=== PATIENT | female | born 1995 | race Caucasian/White ===

== ENCOUNTER 2018-05-01 09:47 | Emergency (ER) | payer OTHER, SELFPAY ==
[2018-05-01 09:48] VITALS: PULSE 87; RESP 16; TEMP 37.1; O2SAT 100; BMI 29.0
--- NOTE | 2018-05-01 10:09 | ED.VISSUMM ---
- ER Visit Summary Date of Service: 05/01/18 Chief Complaint: Left ankle infection History of Present Illness: The patient is a 23 F with no primary care physician. She reports that approximately 10 days ago the lateral surface of her left ankle began to itch. He states that 6 days ago there was a scab in the area was. 4 days ago the swelling and pain increased. She was seen at another emergency department and placed on Bactrim and Keflex. She is taken 3 days of this. She is concerned because the redness is not improving. She complains of a burning, stinging pain that is 7 out of 10 with walking 4 out of 10 with that elevated. She denies any paresthesias. She has had no fever. She has had nausea, but no vomiting. Physical Examination: Vitals: Stable. Afebrile. General: Well-nourished and well-developed. Head: Normocephalic atraumatic. Neck: Supple, no lymphadenopathy. No JVD. Nontender. Cardiovascular: Regular rate and rhythm. No murmurs. Respiratory: No respiratory distress. Clear to auscultation bilaterally. Abdominal: Soft, nontender, nondistended, normal bowel sounds. No guarding, rebound, or peritoneal signs. Back: Nontender. Extremities: Over the left lateral malleolus there is approximately 3 mm scab with approximately 5 cm of surrounding erythema. There is no lymphangitic spread. There is no induration or fluctuance. She has a 2+ dorsalis pedis pulse. Neurologic: Alert and oriented ?3. Cranial nerves II through XII are intact. Normal strength and sensation. Psych: Normal affect. Emergency Department Course and Treatment: Had a prolonged discussion with the patient about treatment options. At this time I do not think that there is a purulent collection beneath the skin. Treatment Plan: Patient will be discharged with instructions to continue her Bactrim and Keflex. She will be given a prescription for 12 [place] and naproxen for pain. Instructed to follow-up with Dr. Coronel in 2 days for a wound check. She does understand that if this does not improve with antibiotics or if a fluid collection develops that she will require incision and drainage. Return to the emergency department for any worsening symptoms. Disposition: To home in improved and stable condition. Impression: 1. Cellulitis left ankle. This note was generated with Dragon dictation software. It may contain incorrect words, spelling, and punctuation that were not noted in review of the chart prior to signing ED Disposition - Plan for ED Patient: Chief Complaint: Cellulitis Instructions: Discharge Instructions for Cellulitis Prescriptions: Hydrocodone Bitart/Apap 5-325 [[place] 5MG-325MG] 1 tablet PO Q6H PRN PRN 3 Days #12 tablet PRN Reason: Pain Naproxen [Naprosyn] 500 mg PO BID #14 tablet Referrals: Morro Coronel DPM [STAFF PHYSICIAN] - 2 Days for wound check
[2018-05-01] MEDS: HYDROcodone Bitartrate/Apap 5/325 Tablet PO (10:26)
[2018-05-01] MEDS: Naproxen 250 MG Tablet 500 MG PO (10:26)
[2018-05-01 10:29] VITALS: BP 119/75; PULSE 82; RESP 16; O2SAT 100
== END 2018-05-01 10:30 | disposition home or self-care (01) ==
PROVIDERS: Emergency Provider Emergency Medicine
DX: L03.116 Cellulitis of left lower limb (principal)
CPT/HCPCS: 99283

== ENCOUNTER → 2020-05-12 11:45 | Outpatient (CLI) | payer BC, SELFPAY ==
[2020-05-12 13:47] LABS: Hemoglobin 13.3 g/dL (12.0-15.0); Mean Corp Hgb Conc 34.1 g/dL (32-36); Mean Corpuscular Hgb 31.5 pg (27.0-32.0); Mean Corpuscular Volume 92.4 fL (81-99); Mean Platelet Vol. 10.9 fl (6.2-12.0); Platelet Count 208 K/mm3 (150-450); RBC Distribution Width CV 12.8 % (11.6-14.6); RBC Distribution Width SD 43.2 fl (35.1-43.9); Red Blood Count 4.22 M/mm3 (4.2-5.4)
[2020-05-12 14:00] LABS: Glucose Challenge Gest 1H 50g 92 mg/dL (70-140)
== END ==
PROVIDERS: Visit Provider Student in an Organized Health Care Education/Training Program
DX: Z13.1 Encounter for screening for diabetes mellitus (principal)
CPT/HCPCS: 36415; 82950; 85027; 87086; 87088

== ENCOUNTER → 2020-07-28 14:37 | Outpatient (CLI) | payer BC, SELFPAY ==
[2020-07-28 15:48] LABS: Hematocrit 33.7 % (37-47); Hemoglobin 11.2 g/dL (12.0-15.0); Mean Corp Hgb Conc 33.2 g/dL (32-36); Mean Corpuscular Hgb 28.6 pg (27.0-32.0); Mean Corpuscular Volume 86.2 fL (81-99); Mean Platelet Vol. 11.7 fl (6.2-12.0); Platelet Count 217 K/mm3 (150-450); RBC Distribution Width CV 11.9 % (11.6-14.6); RBC Distribution Width SD 37.2 fl (35.1-43.9); Red Blood Count 3.91 M/mm3 (4.2-5.4); White Blood Count 8.1 K/mm3 (4.4-11.0)
[2020-07-28 16:23] LABS: Protein, Urine (Random) 13.5 mg/dL (<11.9); Protein:Creat Ratio 131 mg/g CRE (0-200)
[2020-07-28 16:46] LABS: ALB/GLOB Ratio 0.7 RATIO (0.9-2.4); AST(SGOT) 16 U/L (15-37); Alanine Aminotransfer ALT/SGPT 18 U/L (13-56); Albumin, Serum 2.7 g/dL (3.2-5.0); Alkaline Phosphatase 94 U/L (45-117); Anion Gap 6 (5-15); BUN 8 mg/dL (7-18); Chloride 105 mmol/L (98-107); Creatinine, Serum 0.61 mg/dL (0.55-1.02); EST Glomerular Filtration Rate 125 mL/min (>60); Est Glom Filt Rate - Afr Amer 151 mL/min (>60); Glucose 86 mg/dL (74-106); LDH 155 U/L (84-246); Protein, Total 6.7 g/dL (6.4-8.2); Sodium Level 136 mmol/L (136-145)
== END ==
PROVIDERS: Visit Provider Student in an Organized Health Care Education/Training Program
DX: Z34.83 Encounter for supervision of other normal pregnancy, third trimester (principal); R30.0 Dysuria
CPT/HCPCS: 36415; 80053; 82570; 83615; 84156; 85027; 87086; 87088

== ENCOUNTER 2020-08-02 08:42 | Emergency (ER) | payer BC, SELFPAY ==
[2020-08-02 08:44] VITALS: BP 146/69; PULSE 110; RESP 16; TEMP 35.5; O2SAT 98; BMI 33.7
[2020-08-02 08:48] VITALS: BP 146/69; PULSE 110; RESP 16; TEMP 35.5; O2SAT 98
--- NOTE | 2020-08-02 09:35 | ED.DCSUM_ITS ---
History of Present Illness Chief Complaint: General Illness Informant: Patient Narrative: 25-year-old G2, P1 at approximately 36 weeks presents with concern for URI symptoms. Patient has had a sore throat and dry cough for the past 24 hours. Denies any significant shortness of breath or chest pain. Denies any abdominal pain or loss of vaginal fluid. States that she spoke with her STAGE MANAGER who recommended emergency department for Covid testing. Past Medical History - Allergies and Home Meds Allergies/Adverse Reactions: Allergies lidocaine Allergy (Verified 08/02/20 08:43) Swelling Primary Care Physician: Meghan Martinez DO [STAFF PHYSICIAN] - 5-7 Days Prior records reviewed: Yes Past Medical History: None Surgical History: no surgical history Lives: Spouse/ Significant Other Smoking Status: Former smoker Alcohol: None Drugs: None Review of Systems General: Denies: Chills, Fever, Sweats Eyes: Denies: Visual changes - bilaterally, Diplopia ENT: Reports: Sore throat. Denies: Rhinorrhea Cardiovascular: Denies: Chest pain, Palpitations Respiratory: Reports: Cough. Denies: Dyspnea, Dyspnea on exertion Gastrointestinal: Denies: Abdominal pain, Nausea, Vomiting, Diarrhea, Melena, Hematochezia Genitourinary: Denies: Dysuria, Hematuria, Frequency Musculoskeletal: Denies: Back pain, Extremity Pain Skin: Denies: Rash, Wounds Neurological: Denies: Headache, Weakness, Numbness Physical Exam Vital Signs/Narrative: Vital Signs Temp Pulse Resp BP Pulse Ox 08/02/20 08:48 96 F L 110 H 16 146/69 H 98 08/02/20 08:44 96 F L 110 H 16 146/69 H 98 Inital Vital Signs reviewed: Yes General: Well nourished, Well developed, No Acute Distress Head: Normocephalic, Atraumatic Eyes: Perrl, EOMI ENT: Moist mucous membranes, No rhinorrhea Neck: Supple, Nontender Cardiovascular: Regular rate, Regular rhythm, No murmurs Respiratory: No distress, CTA bilaterally, Chest nontender Abdomen: Soft, Nontender, Nondistended, Normal bowel sounds Back: Nontender, Normal Inspection Extremities: Nontender, No edema Skin: Normal color, No rash Neurological: Alert, Oriented x3, Cranial nerves II-XII grossly intact, Normal Strength, Normal Sensation Psychological: Normal affect, Normal Mood Diagnostic/Tx/Re-eval - Medical Decision Making Appears well and nontoxic. Vital signs show mild tachycardia as well as elevated systolic blood pressure upon arrival. This was rechecked and these vital signs of normalized and this was likely secondary to the me checked as soon as she was ambulated into the department. Patient's lungs are clear. No hypoxemia. Rapid Covid negative. Patient however is only had symptoms for 24 hours. A more ideal test would be approximately 5 days out from beginning symptoms. Spoke with patient's STAGE MANAGER who is agreeable with her being rechecked in 4 days and having a repeat test. Patient advised that anytime between now and then she begins to get significantly short of breath she needs to return the emergency department for reevaluation. Patient will be given a work note until that time. Asked to self isolate. Patient agreeable and discharged home in stable condition. Impression: 1. URI 2. Possible COVID 19 ED Disposition - Plan for ED Patient: Disposition: Home or Assisted Living Instructions: Coronavirus Disease 2019 (COVID-19): Overview, Preventing the Spread of Infection Understanding Isolation Procedures Referrals: Meghan Martinez DO [STAFF PHYSICIAN] - 5-7 Days Additional Instructions: Please have COVID testing done on August 05. This can be done as an outpatient or you may return to [facility] ED for re-evaluation and testing. Please return for worsening shortness of breathe.
[2020-08-02 10:43] VITALS: BP 135/68; PULSE 79; RESP 16; O2SAT 99
[2020-08-02 11:16] VITALS: BP 126/66; PULSE 87; RESP 16; O2SAT 98
== END 2020-08-02 11:17 | disposition home or self-care (01) ==
PROVIDERS: Emergency Provider Emergency Medicine
DX: J06.9 Acute upper respiratory infection, unspecified (principal); Z20.828 Contact with and (suspected) exposure to other viral communicable diseases; O26.893 Other specified pregnancy related conditions, third trimester; Z87.891 Personal history of nicotine dependence; Z3A.36 36 weeks gestation of pregnancy
CPT/HCPCS: 87426; 99282

== ENCOUNTER → 2020-08-11 11:29 | Outpatient (CLI) | payer BC, SELFPAY ==
[2020-08-02 08:44] VITALS: BMI 33.7
== END ==
PROVIDERS: Visit Provider Student in an Organized Health Care Education/Training Program
DX: Z36.85 Encounter for antenatal screening for Streptococcus B (principal)
CPT/HCPCS: 87081

== ENCOUNTER → 2020-08-19 13:30 | Outpatient (CLI) | payer BC, SELFPAY ==
[2020-08-02 08:44] VITALS: BMI 33.7
== END ==
PROVIDERS: Referring Provider Student in an Organized Health Care Education/Training Program; Visit Provider Student in an Organized Health Care Education/Training Program
DX: Z03.818 Encounter for observation for suspected exposure to other biological agents ruled out (principal)
CPT/HCPCS: 87635; C9803; U0005; U0003

== ENCOUNTER 2020-08-27 05:07 | Inpatient (IN) | payer BC, SELFPAY ==
[2020-08-27] VITALS (17 sets, daily range): BP systolic 109–124; BP diastolic 53–76; PULSE 60–87; RESP 14–18; TEMP 36–36.7; O2SAT 97–100; BMI 33.9
[2020-08-27] MEDS: Lactated Ringers 1,000 ML 999 ML IV (05:45)
[2020-08-27 06:00] LABS: Absolute Lymphocyte Count 1.68 X10^3/uL (0.83-4.51); Absolute Neutrophil Count 4.9 X10^3/uL (2.0-7.7); Basophil# 0.02 X10^3/uL; Basophil% 0.3 % (0-1); Eosinophil# 0.04 X10^3/uL; Eosinophils% 0.5 % (0-5); Hematocrit 32.4 % (37-47); Hemoglobin 10.8 g/dL (12.0-15.0); Lymphocyte # 1.68 X10^3/ul (4.0); Lymphocyte % 22.9 % (19-41); Mean Corp Hgb Conc 33.3 g/dL (32-36); Mean Corpuscular Hgb 27.4 pg (27.0-32.0); Mean Corpuscular Volume 82.2 fL (81-99); Mean Platelet Vol. 12.2 fl (6.2-12.0); Monocyte# 0.64 X10^3/uL; Monocyte% 8.7 % (0-10); NRBC Flagged by Analyzer 0 % (0-5); Neutrophil # 4.92 X10^3/uL (2.7-7.7); Neutrophil % 67.2 % (47-70); Platelet Count 200 K/mm3 (150-450); RBC Distribution Width CV 12.5 % (11.6-14.6); RBC Distribution Width SD 37.6 fl (35.1-43.9); Red Blood Count 3.94 M/mm3 (4.2-5.4); White Blood Count 7.3 K/mm3 (4.4-11.0)
[2020-08-27] MEDS: Acetaminophen 500 MG Tablet 1000 MG PO ×3 (06:29→18:05)
[2020-08-27] MEDS: Sodium Citrate/Citric Acid 30 ML UDC PO (06:50)
[2020-08-27] MEDS: Lactated Ringers 1,000 ML 150 ML IV (06:51)
--- NOTE | 2020-08-27 07:22 | PCM.HPOB.BLA ---
History and Physical Date of Admission: 08/27/20 HPI: 25-year-old G3, P1 at 39/3 weeks, BRYNN 09/01/2020 by LMP consistent with early ultrasound, admitted for primary section for breech presentation. Denies LO F, VB, regular contractions. Reports movement. This is complicated by: Resolved polyhydramnios, breech presentation, Depakote exposure early with normal growth Obstetrical History G1: Full-term G2: Early SAB G3: Current Past Medical History Anxiety and depression Medications PNV, Fioricet Past Surgical History [place] tooth extraction Social History Tobacco use: Former Alcohol use: Denies Illicit drug use: Denies Labs Blood type: A pos Rubella: Immune Hep B/C: Negative/negative HIV: Negative RPR: Nonreactive GBS: neg 08/14 Allergies Lidocaine Review of Systems General: alert and oriented HEENT: _denies change of vision Heart/lungs: _denies CP, SOB GI: _denies nausea, vomiting, dysuria, diarrhea MSK: _denies calf pain, tenderness Physical Exam Vital Signs Temp Pulse Resp BP Pulse Ox 08/27/20 06:18 97.3 F L 87 16 112/73 98 General: a&o x3, NAD HEENT: normocephalic, atraumatic Cardio: no JVD Resp: no increased work in breathing Abdomen: soft, gravid, nontender Extremities: _minimal-moderate edema BSUS: breech Labs Laboratory Tests 08/27/20 08/27/20 Range/Units 05:45 05:45 WBC 7.3 (4.4-11.0) K/mm3 RBC 3.94 L (4.2-5.4) M/mm3 Hgb 10.8 L (12.0-15.0) g/dL Hct 32.4 L (37-47) % MCV 82.2 (81-99) fL MCH 27.4 (27.0-32.0) pg MCHC 33.3 (32-36) g/dL RDW Std Deviation 37.6 (35.1-43.9) fl RDW Coeff of Steven 12.5 (11.6-14.6) % Plt Count 200 (150-450) K/mm3 MPV 12.2 H (6.2-12.0) fl Immature Gran % (Auto) 0.400 (0.0-0.9) % Neut % (Auto) 67.2 (47-70) % Lymph % (Auto) 22.9 (19-41) % [place] % (Auto) 8.7 (0-10) % Eos % (Auto) 0.5 (0-5) % Baso % (Auto) 0.3 (0-1) % Absolute Neuts (auto) 4.9 (2.0-7.7) X10^3/uL Absolute Lymphs (auto) 1.68 (0.83-4.51) X10^3/uL Nucleated RBC % 0 (0-5) % Blood Type A POSITIVE Antibody Screen NEGATIVE Assessment & Plan 25-year-old G3, P1 at 39/3 weeks, BRYNN 09/01/2020 by LMP consistent with early ultrasound, admitted for primary section for breech presentation. This is complicated by: Resolved polyhydramnios, breech presentation, Depakote exposure early with normal growth. Plan for primary section, routine orders. 2 g Ancef preop.
[2020-08-27] MEDS: Cefazolin 2 GM in 0.9% Normal Saline 100 ML IV (07:34)
--- NOTE | 2020-08-27 08:29 | OP.PCM_ITS ---
Delivery Classification: Scheduled Final BRYNN: 09/01/20 Final BRYNN Source: US <20 weeks Gestational age: 39 Weeks and 2 Days Date of Procedure: 08/27/20 Pre-Operative Diagnosis: Breech presentation Post-Operative Diagnosis: Breech presentation Indications: 25-year-old G3, P1 at 39 weeks and 2 days with breech presentation. Breech confirmed today upon admission. Plan for primary section made. All risks, benefits, alternatives were discussed with patient. Risks include but are not limited to: Risk of bleeding to the point of transfusion, infection, injury to surrounding tissue including bowel or bladder requiring prolonged Sainz catheter use, VTE, ICU admission. Patient aware and consented. Patient had declined external cephalic version. Description of Procedure: Patient taken to the operating room spinal anesthesia placed. Patient placed in the supine position with a left lateral tilt. Prepped and draped in the usual sterile fashion. Pfannenstiel skin incision made with scalpel carried down through subcutaneous tissue. Fascia nicked on either side of midline and extended bilaterally using Harvey scissors. Marie clamps used to grasp superior fascial edge which was tented up and underlying rectus muscles were dissected off bluntly and sharply at midline using Harvey scissors. Marie clamps then moved to inferior fascial edge and rectus muscles were dissected off in a similar fashion. Hemostats used to separate rectus muscle superiorly at midline. Peritoneum grasped with 2 hemostats and peritoneum incised with Metzenbaum scissors, peritoneum and extended bluntly. Bladder blade placed. Vesicouterine peritoneum identified and bladder flap created with Metzenbaum scissors. Low transverse uterine incision made and extended bluntly. Hand placed in uterus and feet were palpated these were grasped gently and with gentle traction legs delivered followed by torso. Blue towel placed around torso. Arms swept across the anterior portion of the chest. Head flexed and delivered with assistance of gentle fundal pressure. Cord clamped and cut baby to nursing. Manual extraction of placenta. Uterus exteriorized and cleared of all clots with a dry lap. Run locking suture used to close hysterotomy. Second vertical imbricating stitch was then used. 1 figure-of- eight placed for hemostasis. Uterus replaced into the abdomen. Closure continue to be hemostatic. Peritoneum closed with running stitch. Fascia closed in a running stitch. Subcutaneous closed with running stitch. Skin closed with a running subcuticular stitch. At the end of the procedure all needle, lap, sponge counts were correct x3. Urine output 100 cc clear urine. Amniotic Membrane Rupture Type: Artificial Amniotic Fluid Description: Clear Cord Entanglement: None Esitmated Blood Loss (ml): 700cc Gender: Female (1 minute): 8 (5 minute): 9
[2020-08-27] MEDS: Oxytocin 30 units/NS 500 ml 30 UNITS/500 ML IV.SOLN 167 UNITS IV (08:45)
[2020-08-27] MEDS: Lactated Ringers 1,000 ML 100 ML IV (11:54)
[2020-08-27] MEDS: Ketorolac 30 MG/ML Syringe IV ×2 (15:10→20:59)
[2020-08-27] MEDS: 0.9% Saline Lock 10 ML Syringe IV ×2 (15:14→21:01)
[2020-08-27] MEDS: Ondansetron 4 MG/2 ML Vial IV (17:15)
[2020-08-28] VITALS: BP 102/54; PULSE 78; RESP 16; TEMP 36.8
[2020-08-28] MEDS: Acetaminophen 500 MG Tablet 1000 MG PO ×3 (00:02→12:39)
[2020-08-28] MEDS: Ketorolac 30 MG/ML Syringe IV ×2 (03:26→09:27)
[2020-08-28] MEDS: 0.9% Saline Lock 10 ML Syringe IV ×2 (03:26→09:27)
[2020-08-28 03:31] VITALS: BP 118/55; PULSE 81; RESP 16; TEMP 36.9
[2020-08-28 06:01] LABS: Hematocrit 28.7 % (37-47); Hemoglobin 9.3 g/dL (12.0-15.0); Mean Corp Hgb Conc 32.4 g/dL (32-36); Mean Corpuscular Hgb 26.7 pg (27.0-32.0); Mean Corpuscular Volume 82.5 fL (81-99); Mean Platelet Vol. 11.9 fl (6.2-12.0); Platelet Count 161 K/mm3 (150-450); RBC Distribution Width CV 12.7 % (11.6-14.6); RBC Distribution Width SD 38.4 fl (35.1-43.9); Red Blood Count 3.48 M/mm3 (4.2-5.4); White Blood Count 6.2 K/mm3 (4.4-11.0)
[2020-08-28 08:30] VITALS: BP 111/66; PULSE 82; RESP 18; TEMP 36.4; O2SAT 99
[2020-08-28] MEDS: Enoxaparin 40 MG/0.4 ML Syringe SC (09:26)
[2020-08-28] MEDS: Senna/Docusate Sodium 1 Tablet PO (09:27)
--- NOTE | 2020-08-28 09:35 | PCM.PN.OB ---
Subjective: POD1. Doing well. Ambulating in room. Tolerating diet. Pain controlled - Physical Exam Vitals/I&O's: Vital Signs Temp Pulse Resp BP Pulse Ox 97.6 F L 82 18 111/66 99 08/28/20 08:30 08/28/20 08:30 08/28/20 08:30 08/28/20 08:30 08/28/20 08:30 Oxygen Delivery Method Room Air Weight: 95.254 kg Body Mass Index (BMI) 33.9 Intake and Output for Last 24 Hours 08/26/20 08/27/20 08/28/20 23:59 23:59 23:59 Intake Total 4263.33 / 4263.33 Output Total 1000 / 1000 600 / 600 Balance 3263.33 / 3263.33 -600 / -600 General: Alert, Oriented x3, No apparent distress HEENT: Atraumatic, Normocephalic Neck: Supple Lungs: Normal air movement Cardiovascular: Regular rate Abdomen: Soft - dressing c/d, uterus 2 cm below umbilicus Extremities: No edema Neurological: Cranial nerves II-XII grossly intact Psych/Mental Status: Normal Affect, Appropriate Laboratory Results 08/28/20 05:50: WBC 6.2, RBC 3.48 L, Hgb 9.3 L, Hct 28.7 L, MCV 82.5, MCH 26.7 L, MCHC 32.4, RDW Std Deviation 38.4, RDW Coeff of Steven 12.7, Plt Count 161, MPV 11.9 Current Medications Acetaminophen (Acetaminophen 500 Mg Tablet) 1,000 mg PO Q6 [facility] Last Admin: 08/28/20 06:33 Dose: 1,000 mg Documented by: Bisacodyl (Bisacodyl 10 Mg Suppository) 10 mg RECTAL UD PRN PRN Reason: If no BM Enoxaparin Sodium (Enoxaparin 40 Mg/0.4 Ml Syringe) 40 mg SC DAILY [facility] Last Admin: 08/28/20 09:26 Dose: 40 mg Documented by: Hydrocortisone (Hydrocortisone 2.5% Crm) 1 applic TOPICAL TID PRN PRN; Protocol PRN Reason: Discomfort Ibuprofen (Ibuprofen 600 Mg Tablet) 600 mg PO Q6H [facility] Naloxone HCl (Naloxone 0.4 Mg/Ml Syringe) 0.02 mg IV Q1M PRN PRN Reason: RR <10 and pt unresponsive Ondansetron HCl (Ondansetron 4 Mg/2 Ml Vial) 4 mg IV Q4H PRN PRN PRN Reason: Nausea Last Admin: 08/27/20 17:15 Dose: 4 mg Documented by: Oxycodone HCl (Oxycodone 5 Mg Tablet) 5 mg PO Q4H PRN PRN PRN Reason: Pain Score 6-10 Prochlorperazine Edisylate (Prochlorperazine 10 Mg/2 Ml Vial) 10 mg IV Q6H PRN PRN PRN Reason: NAUSEA Senna/Docusate Sodium (Senna/Docusate Sodium 1 Tablet) 0 tablet PO DAILY [facility] Last Admin: 08/28/20 09:27 Dose: 1 tablet Documented by: Simethicone (Simethicone 80 Mg Tablet) 80 mg PO PCHS PRN PRN Reason: Indigestion/stomach pain Sodium Chloride (0.9% Saline Lock 10 Ml Syringe) 5 - 15 ml IV UD PRN PRN Reason: SALINE FLUSH Last Admin: 08/28/20 09:27 Dose: 10 ml Documented by: Zolpidem Tartrate (Zolpidem Tartrate 5 Mg Tablet) 5 mg ORAL QHS PRN PRN PRN Reason: Insomnia Medical Necessity - Tobacco Use Smoking Status: Former smoker Assessment/Plan POD1 s/p PLTCS for breech presentation. Doing well. Anticipate home today.
--- NOTE | 2020-08-28 09:37 | DCINST_ITS ---
Discharge Activity: Return to Normal Activity, May not drive while taking narcotic pain medications., May Shower May resume sexual activity in: 6-8 weeks Weight Bearing Status: Weight bearing as tolerated Call your doctor if your incision/area has: Continuous Slow Oozing, Sudden Increased Bleeding, Increased Pain/ Swelling, Increased Redness Call your doctor if you observe: Fever of 101 or Higher, Inability to have a bowel movement, Using more than one pad per hour, Shortness of breath, Chest pain, Calf discomfort Additional Instructions: If you experience any of the following, contact your healthcare provider. * Bleeding that soaks a pad every hour for 2 hours * Fever 100.4 or higher * Unrelieved incision or abdominal pain * Swelling, redness, discharge or bleeding from your incision or episiotomy site * Your incision begins to separate * Problems urinating (including inability to urinate or burning while urinating). * Visual changes * Severe headache * Flu-like symptoms * Pain or redness in one of both of your breasts * Pain, warmth, tenderness or swelling in your legs, especially the calf area * Frequent nausea and vomiting * Symptoms of depression or anxiety If you experience any of the following, call 911 or go to the nearest Emergency Room. * Chest pain * Problems breathing * Seizure activity * Partial or complete paralysis of a body part, slurred speech, weakness or drooping of the face, or a sudden inability to walk or hold your balance Allergies/Adverse Reactions: Allergies lidocaine Allergy (Verified 08/02/20 08:43) Swelling Medications to take at Discharge Pnv No.95/Ferrous Fum/Folic AC [ Caplet] 1 ea PO DAILY 08/02/20 Oxycodone [Oxyir] 5 mg PO Q6H PRN PRN 5 Days #21 tablet 08/28/20 The following prescriptions were given: Oxycodone [Oxyir] 5 mg PO Q6H PRN PRN 5 Days #21 tablet PRN Reason: Pain Score 6-10 Transmission Status: Received by [facility]/pharmacy #[id number] Follow-Up: Call to make an appointment with your doctor for an incision check in 1-2 weeks. You will also need a 6 week post- follow up appointment. Test results from this visit will be discussed in further detail at your follow- up appointment, if applicable. Please Follow Up With: Martinez,Meghan, DO When: 2 week and 6 week Primary Care Physician: Care Physician,No Primary [Primary Care Provider] -
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
[2020-08-28 13:12] VITALS: BP 123/80; PULSE 98; RESP 16; TEMP 36.5
== END 2020-08-28 14:20 | disposition home or self-care (01) | DRG 788 ==
PROVIDERS: Admitting Provider Student in an Organized Health Care Education/Training Program; Referring Provider Student in an Organized Health Care Education/Training Program; Visit Provider Student in an Organized Health Care Education/Training Program
PROC: 10D00Z1 Extraction of Products of Conception, Low, Open Approach (ICD-10-PCS; CPT 59514; principal; 2020-08-27 07:15)
DX: O32.1XX0 Maternal care for breech presentation, not applicable or unspecified (principal); Z3A.39 39 weeks gestation of pregnancy; Z37.0 Single live birth; Z87.891 Personal history of nicotine dependence
CPT/HCPCS: 85025; 85027; 86850; 86900; 86901; 99218; 99251; J7120; A4216; G0378; G0463; J2405

== ENCOUNTER 2023-10-12 09:35 | Outpatient (CLI) | payer MEDICAID, SELFPAY ==
[2023-10-12 09:49] VITALS: BMI 33.9
[2023-10-12 10:02] VITALS: BP 114/73; PULSE 90; RESP 16; TEMP 36.6; O2SAT 97; O2SAT 98
--- NOTE | 2023-10-12 12:50 | OB.TRI.NOTE ---
HPI - General General Date of Service: 10/12/23 HPI Narrative RAMANDEEP GARCIA, is a 28 F who presents with ctxs Maternal Data Information Final BRYNN: 10/22/23 PFSH PFSH Home Medications vit no.95-ferrous fumarate 28 mg-folic acid 800 mcg tablet 1 ea PO DAILY Check with primary doctor 08/02/20 [History Last Taken 10/11/23 14:00] sertraline 50 mg tablet (Zoloft) 50 mg PO DAILY 10/12/23 [History Last Taken 10/11/23 14:00] Allergy/AdvReac Type Severity Reaction Status Date / Time lidocaine Allergy Swelling Verified 10/12/23 09:46 Social History Smoking Status: Former smoker History Elective abortions Hx Para 1 Spontaneous abortions Hx # Term Pregnancies Ectopic pregnancies Hx # Pregnancies Multiple births # of living children NST FHR Rate Baby A Baseline: 135 Variability:: Moderate Accelerations:: 15 x 15 Decelerations:: Variable Uterine Activity:: Irregular Assessment & Plan (1) False labor: PLAN: Plan Reactive NST
== END 2023-10-12 11:50 | disposition home or self-care (01) ==
LOC: WPOUT 09:44 → WP 09:44
PROVIDERS: Referring Provider Obstetrics & Gynecology; Visit Provider Obstetrics & Gynecology
DX: O47.9 False labor, unspecified (principal); Z3A.00 Weeks of gestation of pregnancy not specified
CPT/HCPCS: 59025; 59050; G0378 ×2; 99221

== ENCOUNTER 2023-10-15 01:30 | Inpatient (IN) | payer MEDICAID, SELFPAY ==
[2023-10-14 22:50] VITALS: BP 130/79; PULSE 96; RESP 16; TEMP 36.7
[2023-10-14 23:12] VITALS: BMI 33.8
[2023-10-15] VITALS (54 sets, daily range): BP systolic 112–144; BP diastolic 57–83; PULSE 69–103; RESP 16–18; TEMP 36.1–36.6; O2SAT 92–100
[2023-10-15] MEDS: LACTATED RINGERS 500 ML 999 ML IV (01:50)
[2023-10-15] MEDS: Lactated Ringers 1,000 ML 50 ML IV (01:50)
--- NOTE | 2023-10-15 01:57 | PCM.HP.OB ---
HPI - General General Date of Admission: 10/15/23 HPI Narrative RAMANDEEP GARCIA, is a 28 F @ 38.5 weeks who presents c/o contractions. pt on admission was 4cm made change to 7cm and was admitted. pt is GBS positive PFSH PFS Medical History (Updated 10/15/23 @ 02:[address] Rayne Tubbs MD) Anxiety Depression Vaginal after Home Medications vit no.95-ferrous fumarate 28 mg-folic acid 800 mcg tablet 1 ea PO DAILY Check with primary doctor 08/02/20 [History Last Taken 10/11/23 14:00] sertraline 50 mg tablet (Zoloft) 50 mg PO DAILY 10/12/23 [History Last Taken 10/11/23 14:00] Allergy/AdvReac Type Severity Reaction Status Date / Time lidocaine Allergy Swelling Verified 10/14/23 23:17 Surgical History (Updated 10/15/23 @ 02:[address] Rayne Tubbs MD) History of surgery Previous section Social History Smoking Status: Former smoker History Elective abortions Hx Para 3 Spontaneous abortions Hx # Term Pregnancies Ectopic pregnancies Hx # Pregnancies Multiple births # of living children NST FHR Rate Baby A Baseline: 130 Variability:: Moderate Accelerations:: 15 x 15 Decelerations:: None Uterine Activity:: [id number] Vital Signs Vital Signs Vital Signs: 10/14/23 22:50 10/14/23 22:50 10/14/23 22:50 Temperature Temperature Source Temporal Pulse Rate 96 Respiratory Rate Blood Pressure 130/79 H BP Systolic 130 BP Diastolic 79 10/14/23 22:50 10/14/23 22:50 Temperature 98.1 F Temperature Source Pulse Rate Respiratory Rate 16 Blood Pressure BP Systolic BP Diastolic Weight Weight: 95.2 kg Body Mass Index (BMI) 33.8 Physical Exam Const alert and oriented x3 General Appearance: cooperative HEENT normocephalic GI GI Narrative: Gravid, non tender to palpation. OB / External & Speculum: external exam normal Extremity normal to inspection Skin no rashes or lesions noted Neuro oriented x3 and CN's II-XII intact bilaterally Psych Appearance: grossly normal Labs Labs Labs: Blood Type A POSITIVE Antibody Screen NEGATIVE Hct 28.7 % (37-47) L Hgb 9.3 g/dL (12.0-15.0) L Syphilis Total Ab Pending Rubella IgG Antibody 92.0 IU/mL Hep Bs Antigen Negative (Negative) Hepatitis C Antibody Pending HIV 1&2 Antibody Pending Glucose 1 Hr 50 gm 92 mg/dL (70-140) Rhogam given: No Assessment & Plan (1) Anxiety: (2) Depression: (3) Previous section: COMMENT: 2020 (4) Obesity affecting : (5) Positive GBS test: PLAN: Plan Admit to L&D Mont[facility] FHR/TOCO Epidural if requested for pain Monitor VS Anticipate successful PCN for GBS prophylaxis
[2023-10-15] MEDS: Penicillin G Pot 5,000,000 UNITS in 0.9% Normal Saline (100mL MB+) 100 ML 150 UNITS IV (02:00)
[2023-10-15 02:21] LABS: Absolute Lymphocyte Count 0.88 X10^3/uL (0.83-4.51); Absolute Neutrophil Count 9.5 X10^3/uL (2.0-7.7); Basophil# 0.02 X10^3/uL; Basophil% 0.2 % (0-1); Hematocrit 36.4 % (37-47); Lymphocyte # 0.88 X10^3/ul (0.83-4.51); Lymphocyte % 7.9 % (19-41); Mean Corpuscular Hgb 26.4 pg (27.0-32.0); Mean Corpuscular Volume 80.2 fL (81-99); Mean Platelet Vol. 11.5 fl (6.2-12.0); Monocyte# 0.67 X10^3/uL; NRBC Flagged by Analyzer 0 % (0-5); Neutrophil % 85.5 % (47-70); Platelet Count 171 K/mm3 (150-450); RBC Distribution Width SD 39.9 fl (35.1-43.9); Red Blood Count 4.54 M/mm3 (4.2-5.4); White Blood Count 11.1 K/mm3 (4.4-11.0)
--- NOTE | 2023-10-15 03:16 | PCM.PN.BLA ---
Progress Note Patient requesting AROM- 9cm per nursing- pt now declining epidural. AROM performed- Light meconium.
[2023-10-15] MEDS: Oxytocin 15 Units/NS 250ml 15 UNITS/250 ML IV.SOLN 83 UNITS IV (03:35)
[2023-10-15] MEDS: Oxytocin 10 UNITS/ML Vial IM (03:36)
--- NOTE | 2023-10-15 03:43 | EX.PCM.OBRPT ---
Vaginal Delivery Maternal Presentation Maternal Presentation: Active Labor Operative Information Date of Procedure: 10/15/23 Pre-Operative Diagnosis: Previous Cs, 38.5 weeks gestation, Active labor, Obesity in Post-Operative Diagnosis: same, live female Surgery / Procedure Performed: Spontaneous Vaginal Delivery Type of Anesthesia: None Estimated Blood Loss: 50 Time of Delivery: 03:33 Findings Description of Procedure: Patient progressed to fully dilated after artificial rupture membranes. Patient with good maternal pushing efforts delivered the head followed by the anterior shoulder and the rest the infant's body. The was placed on the mother's chest for immediate skin to skin. Cord was clamped and cut after approximately 30 seconds. IM and IV Pitocin were given per protocol. Placenta was then delivered intact without complication. Vagina and perineum were intact. Presentation: Vertex Amniotic Membrane Rupture Type: Artificial Amniotic Fluid Description: Lightly stained meconium Placental Delivery Description: Spontaneous Placenta Disposition: [facility] Specimen(s) Removed: Placenta Cord Vessel Description: 3 Vessels Cord Entanglement: None Infant A Gender: Female (1 minute): 8 (5 minute): 9 Delayed Cord Clamping: Yes Post Vaginal Delivery Medications Given After Delivery: IV Pitocin and IM Pitocin Episiotomy Description: None Laceration: None Complication Complications: None
[2023-10-15 04:46] LABS: HIV - WCH Non-Reactive (Nonreactive); Hepatitis B Surface Antigen Non-Reactive (Nonreactive); Hepatitis C Antibody Non-Reactive (Nonreactive); Syphilis Antibodies Non-reactive
[2023-10-15 05:31] LABS: Rubella IgG Reactive (Nonreactive)
[2023-10-15] MEDS: Ibuprofen 600 MG Tablet PO ×2 (05:53→17:01)
--- NOTE | 2023-10-15 09:04 | NURSING ---
Pt requesting for IV to be removed. Pt states that she has peed twice but did not know that she was supposed to measure. Pt states that she felt like she went a good amount.
[2023-10-15] MEDS: Sertraline 50 MG Tablet PO (11:10)
[2023-10-16 00:05] VITALS: BP 114/70; PULSE 65; RESP 16; TEMP 36.7; O2SAT 99
[2023-10-16] MEDS: Ibuprofen 600 MG Tablet PO ×2 (00:05→09:27)
[2023-10-16 03:50] VITALS: BP 112/68; PULSE 74; RESP 16; TEMP 36.2; O2SAT 99
--- NOTE | 2023-10-16 08:29 | PCM.PN.OB ---
Subjective Subjective Patient doing well. Having some period like cramping. Lochia is normal. Pain is controlled. She is ambulating and voiding without difficulty. She is tolerating a diet without nausea or vomiting. She denies lightheadedness, dizziness, chest pain, shortness of breath, leg pain. She desires to go home today. Objective Data Objective Data Vital Signs: Vital Signs Temp Pulse Resp BP Pulse Ox O2 Del Method 97.1 F L 74 16 112/68 99 Room Air 10/16/23 03:50 10/16/23 03:50 10/16/23 03:50 10/16/23 03:50 10/16/23 03:50 10/16/23 03:50 Oxygen Delivery Method Room Air Weight: 209 lb 14.081 oz Body Mass Index (BMI) 33.8 Intake & Output: Intake and Output for Last 24 Hours 10/14/23 10/15/23 10/16/23 23:59 23:59 23:59 Intake Total 940.83 / 940.83 Output Total 50 / 50 Balance 890.83 / 890.83 Lab / Micro Data 10/15/23 01:45 Physical Exam Const alert and no apparent distress General Appearance: comfortable HEENT normocephalic GI soft to palpation, non-tender and non-distended GI Narrative: Fundus firm at U -2 Extremity normal to inspection and no calf tenderness Assessment & Plan (1) Vaginal after : PLAN: Patient is day 1 from a vaginal after . She is doing well and desires discharge. Discharge instructions reviewed.
--- NOTE | 2023-10-16 08:31 | DCINST_ITS ---
Discharge Instructions Diet Discharge Diet: No restrictions Activity Discharge Activity: May Drive and May Shower May resume sexual activity in: 6 weeks Weight Bearing Status: Weight bearing as tolerated Lifting Restrictions: nothing heavier than baby Dressing / Incision Call your doctor if you observe: Fever of 101 or Higher, Coldness, Increased Pain, Numbness or Tingling, Change in Color, Inability to urinate, Inability to have a bowel movement, Using more than 1 pad per hour, Shortness of breath, Dizziness, Fainting spells, Swelling in the ankles, Chest pain, Increased palpitations (irregular heartbeat), Calf discomfort and Uncontrolled pain Follow Up Care When: 1-2 weeks early 6 week exam Test Results: Test results from this visit will be discussed in further detail at your follow- up appointment, if applicable. Discharge Plan Admission Admit Date/Time: 10/15/23 01:30 Primary Reason for Your Visit: delivery Attending Provider: Rayne Tubbs Primary Care Provider: Maricruz PhysicianKarine Primary Instructions Patient Instructions: After a Vaginal Discharge Orders/Prescriptions Prescriptions: Continued PNV cmb#95-ferrous fumarate-FA 1 EACH tablet 1 ea PO DAILY sertraline [Zoloft] 50 mg tablet 50 mg PO DAILY Referrals / Follow Up: Care Physician,No Primary [Primary Care Provider] - Disposition Disposition (needs filled in before D/C Order can be placed): Home, Self Care
[2023-10-16] MEDS: Sertraline 50 MG Tablet PO (09:27)
[2023-10-16 10:00] VITALS: PULSE 82; RESP 18; TEMP 36.5; O2SAT 98
[2023-10-16 13:39] VITALS: BP 127/73
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
--- NOTE | 2023-10-16 14:15 | CASEMGMT ---
Social Work Assessment Labor and Delivery Unit Patient Address: Phone number: Date of Referral: Time of Referral:? Referred By: Date of Intervention: ?? Time of Intervention:? Reason for Referral:? History obtained from: medical records, MOB and FOB Household composition: Patient's parent/guardian status:? ? Medical History: ? Educational Status:? Financial Status: Infant Supplies:?? Childcare/Caregiver(s):? Transportation:?? Programs/Agencies Involved: ??? Children Services/Legal Issues:??? Behavioral Health Issues: ??Mental Health History:??? Substance Use History:?? Family History:? Drug Screens: ?? Family/Social Stressors:? Support Systems: Depression/Shaken Baby/Safe Sleeping:? ASSESSMENT:? Safe Plan of Care for related to substance use:? PLAN:? ?No other services requested or indicated.
--- NOTE | 2023-10-17 11:40 | NURSING ---
corrected documentation on delivery record. pt was a successful
== END 2023-10-16 13:45 | disposition home or self-care (01) | DRG 560 ==
LOC: WPOUT 01:34 → WP 01:34
PROVIDERS: Admitting Provider Obstetrics & Gynecology; Referring Provider Obstetrics & Gynecology; Visit Provider Obstetrics & Gynecology
DX: O34.219 Maternal care for unspecified type scar from previous cesarean delivery (principal); Z37.0 Single live birth; O26.23 Pregnancy care for patient with recurrent pregnancy loss, third trimester; B95.1 Streptococcus, group B, as the cause of diseases classified elsewhere; F32.A Depression, unspecified; F41.9 Anxiety disorder, unspecified; O99.214 Obesity complicating childbirth; O77.0 Labor and delivery complicated by meconium in amniotic fluid; O99.344 Other mental disorders complicating childbirth; Z87.891 Personal history of nicotine dependence; O99.824 Streptococcus B carrier state complicating childbirth; Z3A.38 38 weeks gestation of pregnancy
CPT/HCPCS: 59025; 59050; 85025; 86703; 86762; 86780; 86803; 86850; 86900; 86901; 87340; 99221; J7120; G0378